=== PATIENT | male | born 1985 | race American Indian/Alaskan Native ===

== ENCOUNTER 2021-03-24 13:28 | Emergency (ER) | payer MEDICAID, OTHER ==
[2021-03-24 18:20] LABS: Hematocrit 36.9 % (35.5-45.6); Hemoglobin 11.6 gm/dl (11.8-15.2); Mean Corpuscular HGB Conc 31 % (32-34); Mean Corpuscular Volume 73 fl (84-94); Platelet Count 343 K/mm3 (140-440); Red Blood Count 5.06 M/mm3 (3.65-5.03); Red Cell Distribution Width 16.4 % (13.2-15.2)
[2021-03-24] MEDS ORDERED: ONDANSETRON 4 MG/2 ML INJ IV ONE ×2 (18:25→20:53)
[2021-03-24] MEDS ORDERED: MORPHINE 4 MG/1 ML INJ IV ONE ×2 (18:25→20:53)
[2021-03-24] MEDS ORDERED: SODIUM CHLORIDE 0.9% 1000 ML 1,000 ML IV ONE (18:25)
[2021-03-24 18:29] LABS: Bilirubin,Urine NEG (Negative); Blood,Urine MOD (Negative); Color,Urine Yellow (Yellow); Mucus,Urine 3+ /HPF; Urobilinogen,Urine < 2.0 mg/dL (<2.0)
[2021-03-24 18:38] LABS: Alanine Aminotransferase 11 units/L (7-56); Albumin 3.4 g/dL (3.9-5); BUN/Creatinine Ratio 6; Blood Urea Nitrogen 5 mg/dL (9-20); Calcium 8.4 mg/dL (8.4-10.2); Hemolysis Index 15
[2021-03-24 18:51] LABS: Bilirubin,Direct < 0.2 mg/dL (0-0.2)
--- NOTE | 2021-03-24 18:56 | Emergency Department Report ---
ED Abdominal Pain HPI - General Chief Complaint: Abdominal Pain Stated Complaint: ABD PAIN, VOMITING BLOOD PUI?: No Source: patient Mode of arrival: Ambulatory Limitations: No Limitations - History of Present Illness Initial Comments: 36-year-old -[place] male presents to the emergency room for constant abdominal pain since Sunday. Patient admits to nausea vomiting and diarrhea. Patient states he is had a negative Covid test prior to visiting from [place]. Patient reports the pain is in the navel and right upper quadrant. Patient reports a past medical history of epilepsy and a brain aneurysm. Patient is currently on Keppra 500 mg twice a day. Patient denies any recent seizure activity. Patient denies any fever or chills. Patient states he is allergic to Toradol. MD Complaint: abdominal pain Onset/Timin -: days(s) Location: periumbilical, RUQ Migration to: no migration Severity scale (0 -10): 8 Quality: stabbing, aching, sharp Consistency: constant Improves With: nothing Worsens With: nothing Associated Symptoms: nausea, vomiting, diarrhea. denies: fever - Related Data Home Medications Medication Instructions Recorded Confirmed Last Taken levETIRAcetam [Keppra] 500 mg PO BID 03/05/14 03/05/14 03/05/14 1 Previous Rx's Medication Instructions Recorded Last Taken Type Butalb/Acetamin/Caff 50-325-40 1 each PO Q6H PRN #10 tablet 03/06/14 Unknown Rx [Fioricet] Promethazine [Phenergan] 25 mg PO Q6H PRN #10 tablet 03/06/14 Unknown Rx Doxycycline Hyclate [Doxycycline 100 mg PO Q12HR 7 Days #14 tab 03/24/21 Unknown Rx Hyclate TAB] Allergies Allergy/AdvReac Type Severity Reaction Status Date / Time ketorolac [From Toradol] AdvReac Unknown Verified 03/24/21 13:31 ED Review of Systems ROS: Stated complaint: ABD PAIN, VOMITING BLOOD Other details as noted in HPI Comment: All other systems reviewed and negative ED Past Medical Hx - Past Medical History Hx Hypertension: Yes Hx Seizures: Yes Additional medical history: brain bleed - Social History Smoking Status: Current Every Day Smoker Substance Use Type: Alcohol - Medications Home Medications: Home Medications Medication Instructions Recorded Confirmed Last Taken Type levETIRAcetam [Keppra] 500 mg PO BID 03/05/14 03/05/14 03/05/14 History 1 Butalb/Acetamin/Caff 50-325-40 1 each PO Q6H PRN #10 tablet 03/06/14 Unknown Rx [Fioricet] Promethazine [Phenergan] 25 mg PO Q6H PRN #10 tablet 03/06/14 Unknown Rx Doxycycline Hyclate [Doxycycline 100 mg PO Q12HR 7 Days #14 tab 03/24/21 Unknown Rx Hyclate TAB] ED Physical Exam - General Limitations: No Limitations General appearance: alert, in no apparent distress - Head Head exam: Present: atraumatic, normocephalic - Eye Eye exam: Present: normal appearance - ENT ENT exam: Present: mucous membranes dry - Neck Neck exam: Present: normal inspection, full ROM - Respiratory Respiratory exam: Present: normal lung sounds bilaterally. Absent: respiratory distress, accessory muscle use - Cardiovascular Cardiovascular Exam: Present: regular rate - GI/Abdominal GI/Abdominal exam: Present: soft, tenderness, guarding, normal bowel sounds. Absent: distended - Extremities Exam Extremities exam: Present: normal inspection, full ROM - Back Exam Back exam: Present: normal inspection - Neurological Exam Neurological exam: Present: alert, oriented X3, normal gait - Psychiatric Psychiatric exam: Present: normal affect, normal mood - Skin Skin exam: Present: warm, dry, intact, normal color. Absent: rash ED Course Vital Signs 03/24/21 03/24/21 13:32 19:33 Temperature 98.3 F Pulse Rate 99 H 70 Respiratory 18 16 Rate Blood Pressure 144/96 142/76 [Right] O2 Sat by Pulse 98 100 Oximetry ED Medical Decision Making - Lab Data Result diagrams: 03/24/21 17:47 03/24/21 17:47 - Radiology Data Radiology results: report reviewed [facility] [address] [place] [address] Cat Scan Report Signed Patient: RHYS MORENO MR#: [id number] : 1985 Acct:[id number] Age/Sex: 36 / M ADM Date: 03/24/21 Loc: ED Attending Dr: Ordering Physician: SARI FORD Date of Service: 03/24/21 Procedure(s): CT abdomen pelvis w con Accession Number(s): [id number] cc: SARI FORD CT ABDOMEN AND PELVIS WITH CONTRAST INDICATION: Right upper quadrant tenderness and periumbilical. TECHNIQUE: Axial CT images were obtained through the abdomen and pelvis after 100 cc Omni [address] scans at this location are performed using CT dose reduction for ALARA by means of automated exposure control. COMPARISON: None available. FINDINGS: LOWER CHEST: No significant abnormality. LIVER: No significant abnormality. GALLBLADDER: No significant abnormality. BILE DUCTS: No significant abnormality. PANCREAS: No significant abnormality. SPLEEN: No significant abnormality. ADRENALS: No significant abnormality. RIGHT KIDNEY and URETER: No significant abnormality. LEFT KIDNEY and URETER: No significant abnormality. STOMACH and SMALL BOWEL: No significant abnormality. COLON: Moderate bowel wall thickening involving the rectum, sigmoid, descending and transverse colon with mild right-sided colitis. APPENDIX: No significant abnormality. PERITONEUM: No free fluid. No free air. No fluid collection. LYMPH NODES: No significant adenopathy. AORTA and ARTERIES: No significant abnormality. IVC and VEINS: No significant abnormality. URINARY BLADDER: No significant abnormality. REPRODUCTIVE ORGANS: No significant abnormality. ADDITIONAL FINDINGS: None. SKELETAL SYSTEM: No significant abnormality. IMPRESSION: 1. Moderate diffuse proctocolitis. Differential considerations would include inflammatory bowel disease such as ulcerative colitis or infectious pseudomembranous colitis Signer Name: Julio C Torrez MD Signed: 03/24/2021 8:20 PM Workstation Name: [id number] Transcribed By: TL Dictated By: Julio C Torrez MD Electronically Authenticated By: Julio C Torrez MD Signed Date/Time: 03/24/212019 DD/ 17 TD/TT: - Medical Decision Making 36-year-old -[place] male presents to the emergency room for constant abdominal pain since Sunday. Patient admits to nausea vomiting and diarrhea. Patient states he is had a negative Covid test prior to visiting from [place]. Patient reports the pain is in the navel and right upper quadrant. Patient reports a past medical history of epilepsy and a brain aneurysm. Patient is currently on Keppra 500 mg twice a day. Patient denies any recent seizure activity. Patient denies any fever or chills. Patient states he is allergic to Toradol. CBC, CMP, lipase, urinalysis and CT abdomen with contrast, INT, normal saline, IV Zofran and morphine 4 mg IV Critical care attestation.: If time is entered above; I have spent that time in minutes in the direct care of this critically ill patient, excluding procedure time. ED Disposition Clinical Impression: Abdominal pain, UTI (urinary tract infection) Disposition: 01 HOME / SELF CARE / HOMELESS Is pt being admited?: No Does the pt Need Aspirin: No Condition: Stable Instructions: Urinary Tract Infection, Adult, [id number] Additional Instructions: Complete antibiotics as prescribed. Tylenol as needed. Prescriptions: Doxycycline Hyclate [Doxycycline Hyclate TAB] 100 mg PO Q12HR 7 Days #14 tab Referrals: MARISELA JAY,CHER [Other] - 3-5 Days Time of Disposition: 20:54
[2021-03-24 18:57] LABS: Total Cells Counted 100
[2021-03-24 18:58] LABS: Anisocytosis RARE; Hypochromasia 1+
--- NOTE | 2021-03-24 20:24 | Cat Scan Report ---
CT ABDOMEN AND PELVIS WITH CONTRAST INDICATION: Right upper quadrant tenderness and periumbilical. TECHNIQUE: Axial CT images were obtained through the abdomen and pelvis after 100 cc Omni [address] scans at this location are performed using CT dose reduction for ALARA by means of automated expos ure control. COMPARISON: None available. FINDINGS: LOWER CHEST: No significant abnormality. LIVER: No significant abnormality. GALLBLADDER: No significant abnormality. BILE DUCTS: No significant abnormality. PANCREAS: No significant abnormality. SPLEEN: No significant abnormality. ADRENALS: No significant abnormality. RIGHT KIDNEY and URETER: No significant abnormality. LEFT KIDNEY and URETER: No significant abnormality. STOMACH and SMALL BOWEL: No significant abnormality. COLON: Moderate bowel wall thickening involving the rectum, sigmoid, descending and transverse colon with mild right-sided colitis. APPENDIX: No significant abnormality. PERITONEUM: No free fluid. No free air. No fluid collection. LYMPH NODES: No significant adenopathy. AORTA and ARTERIES: No significant abnormality. IVC and VEINS: No significant abnormality. URINARY BLADDER: No significant abnormality. REPRODUCTIVE ORGANS: No significant abnormality. ADDITIONAL FINDINGS: None. SKELETAL SYSTEM: No significant abnormality. IMPRESSION: 1. Moderate diffuse proctocolitis. Differential considerations would include inflammatory bowel disea se such as ulcerative colitis or infectious pseudomembranous colitis Signer Name: Julio C Torrez MD Signed: 03/24/2021 8:20 PM Workstation Name: [id number]
[2021-03-24 21:31] VITALS: BP 140/78
== END 2021-03-24 21:31 | disposition home or self-care (01) ==
LOC: ED 13:28
DX: R10.9 Unspecified abdominal pain (principal); N39.0 Urinary tract infection, site not specified; F17.200 Nicotine dependence, unspecified, uncomplicated; I10 Essential (primary) hypertension; F10.20 Alcohol dependence, uncomplicated; Z88.6 Allergy status to analgesic agent
CPT/HCPCS: 36415; 74177; 80048; 80076; 81001; 83690; 85007; 85025; 87086; 96361; 96374; 96375; 96376; 99284; J2270; J2405; J7030; Q9967; Q0162